=== PATIENT | male | born 1990 | race Caucasian/White ===

== ENCOUNTER 2021-10-06 10:03 | Emergency (ER) | payer BC, SELFPAY ==
[2021-10-06 10:13] VITALS: BP 110/65; PULSE 89; RESP 16; TEMP 36.4; O2SAT 100
[2021-10-06 10:14] VITALS: BP 110/65; PULSE 89; RESP 16; TEMP 36.4; O2SAT 100
--- NOTE | 2021-10-06 10:28 | ED.GENADULT ---
HPI - General Adult General Chief complaint: Skin/Abscess/Foreign Body Stated complaint: staph inf Time Seen by Provider: 10/06/21 10:08 Source: patient Mode of arrival: ambulatory Limitations: no limitations History of Present Illness HPI narrative: Pt presents for evaluation of a pustule to the right knee. Symptom onset two days ago. One day prior to that he experienced swelling to the right knee. He denies any known injury. He states he had similar symptoms in the left knee in the past with a staph infection. He also reports a pustule in the left nare for the past few days. No fever, chills, nausea, vomiting. He is not diabetic. He has not tried any therapies to assist with his symptoms. No additional complaints or concerns. Related Data Home Medications Medication Instructions Recorded Confirmed adalimumab [Humira(CF) Pen mg SUBCUT 10/06/21 [id number]] cyanocobalamin (vitamin B-12) 10/06/21 folic acid 10/06/21 methotrexate sodium 10/06/21 prednisone 10/06/21 Allergies Allergy/AdvReac Type Severity Reaction Status Date / Time IRON IV AdvReac Unknown Uncoded 02/24/14 19:23 Review of Systems Review of Systems: CONSTITUTIONAL: Denies fever, chills, or sweats. EYES: Denies visual changes, redness, or discharge. ENT: Reports pustule in left nostril. Denies rhinorrhea, congestion, sore throat, or otalgia. CARDIOVASCULAR: Denies chest pain, palpitations, or edema. RESPIRATORY: Denies cough or dyspnea. GASTROINTESTINAL: Denies abdominal pain, nausea, vomiting, or diarrhea. GENITOURINARY: Denies dysuria or hematuria. SKIN: Reports pustule to the right knee. Denies rash or itching. MUSCULOSKELETAL: Denies back pain, joint pain, or myalgia. NEUROLOGIC: Denies headache, numbness, dizziness, or weakness. PSYCHIATRIC: Denies anxiety or depression. [facility] Past Medical History Medical History Crohn disease Surgical History Surgical History History of ileostomy History of reversal of ileostomy Family History Family History Mother Family history non-contributory Social History Social History Alcohol intake: never Substance use: never Living arrangements: with family Gender identity (if verbalized by the patient): Male Sexual Orientation (if Verbalized by the Patient): Straight or Heterosexual Spiritual care concerns: No Exam Narrative: GENERAL: Well-appearing, well-nourished, and in no acute distress. HEAD: Normocephalic, atraumatic. EYES: PERRLA and EOMI. ENT: 5mm area of swelling in left nostril with dried sanguinous drainage noted. No rhinorrhea or epistaxis. Mucous membranes moist. Oropharynx without tonsillar hypertrophy exudate or other lesions. Bilateral TMs pearly rosales nonbulging NECK: Supple. No adenopathy or masses. No carotid bruits or JVD CHEST: Clear to auscultation. No respiratory distress. No wheezes rales or rhonchi HEART: Regular rate and rhythm. No murmur heard. Normal peripheral pulses. ABDOMEN: Soft, nontender, nondistended, normal active bowel sounds. EXTREMITIES: Normal range of motion. No edema. SKIN: 1 cm pustule to the anterior aspect of the right knee with 4.5 x 5 cm area of surrounding erythema. No fluctuance outside of pustule. Warm, dry, no rash. NEURO: No focal deficits. Alert and oriented x3. PSYCH: Normal mood and affect. Course Course Emergency Course: This is a 31-year-old male who presented with complaints of a pustule to the anterior aspect of the right knee and another in the left nostril. There was no significant fluctuance to perform I&D. I gently express some purulent material from the right knee and obtained a wound culture. Will discharge with mupirocin, Bactrim, Keflex. There is a potential int
== END 2021-10-06 10:32 | disposition home or self-care (01) ==
PROVIDERS: Emergency Provider Nurse Practitioner
DX: L02.415 Cutaneous abscess of right lower limb (principal); K50.90 Crohn's disease, unspecified, without complications
CPT/HCPCS: 87070; 87075; 87077; 87186; 87205; 99203; G0463